=== PATIENT | male | born 1940 | race Caucasian/White ===

== ENCOUNTER 2016-10-28 10:11 | Outpatient (CLI) | payer MEDICARE, OTHER ==
[2016-10-28 11:34] LABS: Anion Gap 13 mmol/L (10-20); BUN (Urea Nitrogen) 15 mg/dL (8.4-25.7); Calc. Creatinine Clearance 0 mL/min (70-130); Calcium 8.7 mg/dL (7.8-10.44); Carbon Dioxide 23 mmol/L (23-31); Chloride 106 mmol/L (98-107); Estimated GFR-MDRD 85; Glucose 99 mg/dL (83-110); Potassium 4.2 mmol/L (3.5-5.1); Sodium 138 mmol/L (136-145)
[2016-10-28 13:40] LABS: Follow-up Chemistry Comp? YES; Follow-up Result - Chemistry REPORT FAXED
== END 2016-10-28 10:12 | disposition home or self-care (01) ==
LOC: NAV LAB 10:11
PROVIDERS: ATTEND Urology
DX: R39.14 Feeling of incomplete bladder emptying (principal)
CPT/HCPCS: 36415; 80048; 84153